=== PATIENT | female | born 1960 | race Caucasian/White ===

== ENCOUNTER 2016-10-06 10:52 | Day surgery (SDC) | payer MEDICAID ==
[2016-10-03 08:48] VITALS: BMI 36.9
[2016-10-06 11:22] VITALS: RESP 18; TEMP 98.2
[2016-10-06] MEDS ORDERED: LIDOCAINE 1% 20 ML VIAL (10MG/ML) FOR IV START INTRADERMA ONE (11:34)
[2016-10-06] MEDS: LACTATED RINGERS 1,000 ML IV SCH ×2 (11:34→12:00)
[2016-10-06] MEDS ORDERED: LIDOCAINE 1% INJ 10MG/ML (20 ML MDV) ONE (12:04)
[2016-10-06] MEDS ORDERED: PROPOFOL 10 MG/ML 20 ML VIAL IV ONE (12:04)
--- NOTE | 2016-10-06 12:18 | P.PCN ---
Date of Procedure: 10/06/16 Procedure(s) Performed: BRIEF HISTORY: Patient is a 56-year-old pleasant white female scheduled for an elective colonoscopy as a part of evaluation of abdominal pain, abdominal pressure and change in bowel habits for the last 3 months duration. PROCEDURE PERFORMED: Colonoscopy. PREOPERATIVE DIAGNOSIS: Abdominal pain, change in bowel habits. IV sedation per Anesthesia. PROCEDURE: After informed consent was obtained, the patient, was brought into the endoscopy unit. IV sedation was administered by Anesthesia under continuous monitoring. Digital rectal examination was normal. Initially the Olympus CF- 160 flexible video colonoscope was then inserted in the rectum, gradually advanced into the cecum without any difficulty. Careful examination was performed as the scope was gradually being withdrawn. Ileocecal valve and the appendiceal orifice were visualized and appeared normal. Prep was excellent. Mucosa of the cecum, ascending colon, transverse colon, descending colon, sigmoid colon, and rectum appeared normal. Retroflexion was performed in the rectum and no lesions were seen. The patient tolerated the procedure well. IMPRESSION: Normal-appearing colon from rectum to cecum with no evidence of colorectal neoplasia. RECOMMENDATIONS: Findings of this examination were discussed with the patient as well as her family. She was advised to have a repeat screening colonoscopy in 10 years.
[2016-10-06 12:43] VITALS: BP 113/73; PULSE 54
== END 2016-10-06 13:01 | disposition home or self-care (01) ==
LOC: ORWHC2ENDO 10:52
PROVIDERS: ATTEND Internal Medicine Gastroenterology
DX: I10 Essential (primary) hypertension (principal); J45.909 Unspecified asthma, uncomplicated; K21.9 Gastro-esophageal reflux disease without esophagitis; Z79.51 Long term (current) use of inhaled steroids; Z88.0 Allergy status to penicillin
CPT/HCPCS: 81025; 45378; J2001; J2704

== ENCOUNTER → 2016-10-17 | Outpatient (CLI) | payer MEDICAID ==
[2016-10-17 07:52] LABS: Basophils % (A) 1 %; CH 32.7; CHCM 33.4; Eosinophils # (A) 0.3 k/uL (0-0.7); Eosinophils % (A) 4 %; HCT 46.3 % (34.0-46.0); HDW 2.27; HGB 15.2 gm/dL (11.4-16.0); Luc # (Auto) 0.11; Luc % (Auto) 2; Lymphocytes # (A) 1.8 k/uL (1.0-4.8); Lymphocytes % (A) 26 %; MCH 32.3 pg (25.0-35.0); MCHC 32.8 g/dL (31.0-37.0); MCV 98.5 fL (80.0-100.0); Mean Platelet Volume 7.2; Monocytes # (A) 0.5 k/uL (0-1.0); Monocytes % (A) 8 %; Neutrophils # (A) 4.1 k/uL (1.3-7.7); Neutrophils % (A) 61 %; RDW 13.1 % (11.5-15.5); WBC 6.8 k/uL (3.8-10.6); WBC (Perox) 7.04
[2016-10-17 08:01] LABS: ALT 26 U/L (9-52); AST 25 U/L (14-36); Alkaline Phosphatase 40 U/L (38-126); Anion Gap 10 mmol/L; Blood Urea Nitrogen 13 mg/dL (7-17); Calcium 9.6 mg/dL (8.4-10.2); Carbon Dioxide 22 mmol/L (22-30); Chloride 107 mmol/L (98-107); Glucose 109 mg/dL (74-99); Non-African American GFR(MDRD) >60 (>60 ml/min/1.73 sqM); Potassium 4.3 mmol/L (3.5-5.1); Sodium 139 mmol/L (137-145); Total Bilirubin 0.9 mg/dL (0.2-1.3); Total Protein 7.8 g/dL (6.3-8.2)
== END | disposition home or self-care (01) ==
LOC: LABWHC1 07:00
PROVIDERS: ATTEND Physician Assistant
DX: Z01.411 Encounter for gynecological examination (general) (routine) with abnormal findings (principal); R19.4 Change in bowel habit; Z13.29 Encounter for screening for other suspected endocrine disorder
CPT/HCPCS: 36415; 80053; 84439; 84443; 85025

== ENCOUNTER → 2016-10-19 | Outpatient (CLI) | payer MEDICAID ==
--- NOTE | 2016-10-20 14:26 | MM ---
Reason for exam: screening (asymptomatic). Last mammogram was performed 1 year and 3 months ago. History: Patient had first child at age 36. Physical Findings: A clinical breast exam by your physician is recommended on an annual basis and results should be correlated with mammographic findings. MG 3D Screening Mammo W/Cad Bilateral CC and MLO view(s) were taken. Prior study comparison: July 29, 2015, right breast US breast workup limited RT. July 29, 2015, right breast MG 3d work up w/cad RT. July 23, 2015, bilateral MG screening mammo w CAD. March 04, 2014, bilateral MG screening mammo w CAD. February 05, 2013, bilateral digital screening mammo w/CAD. There are scattered fibroglandular densities. Finding: There are coarse calcifications in the middle position of the left breast. No significant changes in finding since July 29, 2015, February 05, 2013, July 29, 2015, July 23, 2015, and March 04, 2014. ASSESSMENT: Benign, BI-RAD 2 RECOMMENDATION: Routine screening mammogram of both breasts in 1 year.
== END | disposition home or self-care (01) ==
LOC: RADMAMWWP 07:02
PROVIDERS: ATTEND Family Medicine
DX: Z12.31 Encounter for screening mammogram for malignant neoplasm of breast (principal)
CPT/HCPCS: 77063; G0202

== ENCOUNTER → 2017-03-10 | Outpatient (CLI) | payer MEDICAID ==
--- NOTE | 2017-03-10 14:31 | MM ---
Reason for exam: clinical finding. Last mammogram was performed 5 months ago. History: Patient had first child at age 36. Physical Findings: Nurse Summary: 1 x 1.5cm nodule in the right breast at 2 o'clock (nurse ts). MG 3D Diag Mammo W/Cad RT CC and MLO view(s) were taken of the right breast. Prior study comparison: October 19, 2016, bilateral MG 3d screening mammo w/cad. July 29, 2015, right breast MG 3d work up w/cad RT. Finding: There is an intermediate concern, suspicious high density, indistinct irregular mass located 5 cm from the nipple in the 3 o'clock inner quadrant, middle position of the right breast consistent with ultrasound findings. New finding since October 19, 2016 and July 29, 2015. These results were verbally communicated with the patient and result sheet given to the patient on 03/10/17. ASSESSMENT: Suspicious, BI-RAD 4 RECOMMENDATION: Surgical consultation and ultrasound core biopsy of the right breast. Called Dr. Long with mammographic findings and has scheduled an appointment for the patient for 03/27/17 at 1:[address] Mak. Biopsy scheduled for 03/16/17. PRELIMINARY REPORT CALLED AND FAXED TO DR. MAK ON 03/10/17.
--- NOTE | 2017-03-10 14:33 | USB ---
Reason for exam: additional evaluation requested from abnormal screening. History: Patient had first child at age 36. US Breast Limited RT Right breast ultrasound demonstrates a 18 x 67mm irregular, cystic lesion at 2 o'clock. These results were verbally communicated with the patient and result sheet given to the patient on 03/10/17. ASSESSMENT: Highly suggestive of malignancy, BI-RAD 5 RECOMMENDATION: Surgical consultation and ultrasound core biopsy of the right breast. Called Dr. Long with mammographic findings and has scheduled an appointment for the patient for 03/27/17 at 1:[address] Mak. Biopsy scheduled for 03/16/17. PRELIMINARY REPORT CALLED AND FAXED TO DR. MAK ON 03/10/17.
== END ==
LOC: RADMAMWWP 09:44
PROVIDERS: ATTEND Family Medicine
DX: N63 Unspecified lump in breast (principal)
CPT/HCPCS: 76642; G0206; G0279

== ENCOUNTER → 2017-03-16 | Day surgery (SDC) | payer MEDICAID ==
[2017-03-16 11:33] VITALS: RESP 16; BMI 36.0
[2017-03-16 13:29] VITALS: BP 142/85; PULSE 80; TEMP 97.8
--- NOTE | 2017-03-16 14:12 | USB ---
EXAMINATION TYPE: US biopsy breast VAD RT, Postbiopsy diagnostic mammo RT wo CAD DATE OF EXAM: 03/16/2017 CLINICAL HISTORY: 56-year-old female R92.8 ABN MAMMO. Patient with new palpable and mammographic finding in the right breast. Patient reports some bruising that occurred 3 weeks ago. TECHNIQUE: Ultrasound guided core biopsy of the 1:00 right breast. COMPARISON: 03/10/2017 and 10/19/2016 FINDINGS: The procedure of ultrasound guided core biopsy was explained to the patient. Benefits, alternatives, and risks were discussed. An informed consent was then obtained. The patient was placed in supine positioning for imaging and for the procedure. The overlying skin was prepped and draped in usual sterile fashion. Lidocaine was used as anesthetic into the skin and subcutaneous tissue up to area of concern in the right breast. Under ultrasound guidance, a 13-gauge vacuum-assisted mammotome Elite biopsy gun device was used to obtain 7 core samples. Following this, a ribbon clip was left in lesion. Of note, most of the lesion went away with the first specimen suggesting a prominent fluid component. The patient tolerated the procedure well without any immediate complication. The patient was kept in the radiology department for short stay after the procedure and then discharged home in stable condition. Postbiopsy mammogram shows ribbon clip in appropriate position at the 2:00 site corresponding to the location of mammographic abnormality seen on 03/10/2017. IMPRESSION: Successful, uncomplicated ultrasound guided core biopsy of area of concern in the right breast, full pathology results to follow. We note that this was a new palpable mammographic finding which developed over the course of only 4 months and the patient also had bruising in this area. A posttraumatic etiology/ hematoma is suspected rather than neoplasm. Pathology Results: Benign BREAST, RIGHT, CORE BIOPSY: FAT NECROSIS WITH FIBROSIS, CHRONIC INFLAMMATION AND PIGMENT DEPOSITION CONSISTENT WITH HEMOSIDERIN. NEGATIVE FOR MALIGNANCY Recommendation Follow up mammogram of the right breast in 2 months. JOEYD
== END ==
LOC: RADUSWWP 11:16
PROVIDERS: ATTEND Surgery
DX: N64.1 Fat necrosis of breast (principal); Z88.0 Allergy status to penicillin
CPT/HCPCS: 88305; 19083; G0206; A4648; J2001

== ENCOUNTER → 2017-11-20 | Outpatient (CLI) | payer MEDICAID ==
--- NOTE | 2017-11-20 08:32 | MM ---
Reason for exam: follow-up at short interval from prior study. Last mammogram was performed 8 months ago. History: Patient had first child at age 36. Benign US biopsy breast VAD RT of the right breast, March 16, 2017. Took hormonal contraceptives beginning at age 21. Physical Findings: Nurse did not find any significant physical abnormalities on exam. MG Diagnostic Mammo w CAD EDUARDO Bilateral CC and MLO view(s) were taken. Prior study comparison: March 16, 2017, right breast MG diagnostic mammo RT wo CAD. March 10, 2017, right breast MG 3d diag mammo w/cad RT. Finding: There are typically benign calcifications similar to 2014. No suspicious abnormality. Right biopsy marker noted. Previous focal asymmetry resolved post biopsy. These results were verbally communicated with the patient and result sheet given to the patient on 11/20/17. ASSESSMENT: Benign, BI-RAD 2 RECOMMENDATION: Routine screening mammogram of both breasts in 1 year.
== END | disposition home or self-care (01) ==
LOC: RADMAMWWP 07:41
PROVIDERS: ATTEND Family Medicine
DX: R92.8 Other abnormal and inconclusive findings on diagnostic imaging of breast (principal)
CPT/HCPCS: 77066

== ENCOUNTER → 2018-09-05 | Outpatient (CLI) | payer MEDICAID ==
[2018-09-05 08:18] LABS: Basophils % (A) 1 %; Eosinophils # (A) 0.3 k/uL (0-0.7); Eosinophils % (A) 6 %; HCT 44.9 % (34.0-46.0); HGB 14.3 gm/dL (11.4-16.0); Lymphocytes # (A) 1.9 k/uL (1.0-4.8); Lymphocytes % (A) 40 %; MCH 30.8 pg (25.0-35.0); MCHC 31.8 g/dL (31.0-37.0); Mean Platelet Volume 6.9; Monocytes # (A) 0.4 k/uL (0-1.0); Monocytes % (A) 9 %; Neutrophils # (A) 2.1 k/uL (1.3-7.7); Neutrophils % (A) 42 %; Platelet Count 246 k/uL (150-450); RBC 4.63 m/uL (3.80-5.40); RDW 12.8 % (11.5-15.5); WBC 4.9 k/uL (3.8-10.6)
[2018-09-05 16:17] LABS: Iron Saturation 24.2 (12.00-45.00)
[2018-09-05 16:41] LABS: Albumin 4.6 g/dL (3.80-4.90); Albumin/Globulin Ratio 2.09 (1.60-3.17); Anion Gap 7.3 mmol/L (4.00-12.00); Calcium 9.7 mg/dL (8.7-10.3); Carbon Dioxide 25.7 mmol/L (21.6-31.8); Globulin 2.2 g/dL (1.6-3.3); LDL Cholesterol,Calculated 120.2 mg/dL (0.0-131.0); Potassium 4.5 mmol/L (3.5-5.5); Total Bilirubin 0.5 mg/dL (0.3-1.2); Total Protein 6.8 g/dL (6.2-8.2); VLDL Calculation 20.8 mg/dL (5.00-40.00)
== END | disposition home or self-care (01) ==
LOC: LABWHC1 07:30
PROVIDERS: ATTEND Nurse Practitioner Family
DX: E55.9 Vitamin D deficiency, unspecified (principal); R25.2 Cramp and spasm; K21.9 Gastro-esophageal reflux disease without esophagitis; I10 Essential (primary) hypertension; R79.89 Other specified abnormal findings of blood chemistry
CPT/HCPCS: 36415; 80053; 80061; 82306; 83540; 83550; 83735; 85025

== ENCOUNTER 2018-11-03 10:35 | Emergency (ER) | payer MEDICAID ==
[2018-11-03 10:49] VITALS: RESP 18; TEMP 98.1
[2018-11-03] MEDS ORDERED: MORPHINE SULFATE 4 MG/ML SYRINGE IVP PRN (11:15)
[2018-11-03] MEDS ORDERED: SODIUM CHLORIDE 0.9% 500 ML IV STA (11:21)
--- NOTE | 2018-11-03 11:24 | ED ---
General Adult HPI - General Chief complaint: Abdominal Pain Stated complaint: Abd pain Time Seen by Provider: 11/03/18 11:04 Source: patient Mode of arrival: ambulatory Limitations: no limitations - History of Present Illness Initial comments: Dictation was produced using [employer] dictation software. please excuse any grammatical, word or spelling errors. Chief Complaint: 58-year-old female presents with abdominal pain. History of Present Illness: Patient's 58-year-old female with past history of asthma hypertension. Patient was sent here from [facility]. Monday of this week patient had a endometrial biopsy performed by forensic investigator Dr. Hutson. She was told that she was to expect some cramping after the procedure. Patient states that initially she felt fine however over the next couple of days she began expressing worsening symptoms. Patient states that her pain is located to the suprapubic area incidental cramping in nature. She states constant. Denies any nausea vomiting or diarrhea. Patient having normal bowel movements. She was seen at [facility] were is evaluated and then referred to emergency department for further medical evaluation and possible treatment. Denies any vaginal discharge or vaginal bleeding. The ROS documented in this emergency department record has been reviewed and confirmed by me. Those systems with pertinent positive or negative responses have been documented in the HPI. All other systems are other negative and/or noncontributory. PHYSICAL EXAM: General Impression: Alert and oriented x3, not in acute distress HEENT: Normocephalic atraumatic, extra-ocular movements intact, pupils equal and reactive to light bilaterally, mucous membranes moist. Cardiovascular: Heart regular rate and rhythm, S1&S2 audible, no murmurs, rubs or gallops Chest: Lungs clear to auscultation bilaterally, no rhonchi, no wheeze, no rales Abdomen: Bowel sounds present, abdomen soft, mild tenderness to palpation to the suprapubic area. Musculoskeletal: Pulses present and equal in all extremities, no peripheral edema Motor: no focal deficits noted Neurological: CN II-XII grossly intact, no focal motor or sensory deficits noted Skin: Intact with no visualized rashes Psych: Normal affect and mood ED course: 58-year-old female presents with suprapubic pain after endometrial biopsy. Vital signs upon arrival are within acceptable limits. Laboratory evaluation obtained. CBC, abdominal labs, urinalysis is obtained. Patient does have mild leukocytosis and a urine. Patient not having urinary symptoms. Urine culture sent. Pending results. Patient given morphine intravenous fluids with improvement of symptoms. No signs of follow-up viscus perforation. Patient feels much better. Patient clear for discharge. She is given prescription of opiates for severe pain not relieved with Motrin and Tylenol muscle relaxants she is told to follow up with [facility] on Monday. Return parameters discussed. Patient clear for discharge. - Related Data Home Medications Medication Instructions Recorded Confirmed Albuterol Sulfate [Proair Hfa] 1 puff INHALATION Q6HR PRN 10/03/16 03/16/17 Cetirizine HCl [Zyrtec] 10 mg PO DAILY 10/03/16 03/16/17 Cholecalciferol [Vitamin D3] 2,000 unit PO DAILY 10/03/16 03/16/17 Fluticasone/Salmeterol [Advair 1 inhalation PO QAM 10/03/16 03/16/17 250-50 Diskus] Losartan Potassium [Cozaar] 25 mg PO DAILY 10/03/16 03/16/17 Previous Rx's Medication Instructions Recorded HYDROcodone/APAP 5-325MG [[place] 1 tab PO Q6HR PRN 3 Days #12 tab 11/03/18 5-325] Allergies Allergy/AdvReac Type Severity Reaction Status Date / Time Penicillins Allergy Rash/Hives Verified 11/03/18 10:49 Review of Systems ROS Statement: Those systems with pertinent positive or pertinent negative responses have been documented in the HPI. ROS Other: All systems not noted in ROS Statement are negative. Past Medical History Past Medical History: Asthma, Hypertension Additional Past Medical History / Comment(s): hx migraines, stomach burning, change in bowel habits, hx elevated liver enzymes, History of Any Multi-Drug Resistant Organisms: None Reported Additional Past Surgical History / Comment(s): colonoscopy Past Anesthesia/Blood Transfusion Reactions: No Reported Reaction Past Psychological History: No Psychological Hx Reported Smoking Status: Never smoker Past Alcohol Use History: Occasional Past Drug Use History: None Reported - Past Family History Mother Family Medical History: Cancer Father Family Medical History: Cancer General Exam Limitations: no limitations Course Vital Signs 11/03/18 11/03/18 10:45 12:12 Temperature 98.1 F Pulse Rate 82 82 Respiratory 18 18 Rate Blood Pressure 129/90 149/82 O2 Sat by Pulse 98 98 Oximetry Medical Decision Making - Lab Data Result diagrams: 11/03/18 11:25 11/03/18 11:25 Lab Results 11/03/18 11/03/18 11/03/18 Range/Units 11:25 11:25 12:06 WBC 10.8 H (3.8-10.6) k/uL RBC 4.69 (3.80-5.40) m/uL Hgb 14.8 (11.4-16.0) gm/dL Hct 45.0 (34.0-46.0) % MCV 95.9 (80.0-100.0) fL MCH 31.6 (25.0-35.0) pg MCHC 32.9 (31.0-37.0) g/dL RDW 13.0 (11.5-15.5) % Plt Count 205 (150-450) k/uL Neutrophils % 86 % Lymphocytes % 7 % Monocytes % 4 % Eosinophils % 2 % Basophils % 0 % Neutrophils # 9.3 H (1.3-7.7) k/uL Lymphocytes # 0.7 L (1.0-4.8) k/uL Monocytes # 0.4 (0-1.0) k/uL Eosinophils # 0.2 (0-0.7) k/uL Basophils # 0.0 (0-0.2) k/uL Sodium 138 (137-145) mmol/L Potassium 4.1 (3.5-5.1) mmol/L Chloride 105 (98-107) mmol/L Carbon Dioxide 25 (22-30) mmol/L Anion Gap 8 mmol/L BUN 11 (7-17) mg/dL Creatinine 0.72 (0.52-1.04) mg/dL Est GFR (CKD-EPI)AfAm >90 (>60 ml/min/1.73 sqM) Est GFR (CKD-EPI)NonAf >90 (>60 ml/min/1.73 sqM) Glucose 110 H (74-99) mg/dL Calcium 9.7 (8.4-10.2) mg/dL Total Bilirubin 1.1 (0.2-1.3) mg/dL AST 28 (14-36) U/L ALT 33 (9-52) U/L Alkaline Phosphatase 41 (38-126) U/L Total Protein 7.6 (6.3-8.2) g/dL Albumin 4.5 (3.5-5.0) g/dL Urine Color Yellow Urine Appearance Cloudy H (Clear) Urine pH 5.5 (5.0-8.0) Ur Specific [place] 1.026 (1.001-1.035) Urine Protein 1+ H (Negative) Urine Glucose (UA) Negative (Negative) Urine Ketones 1+ H (Negative) Urine Blood Moderate H (Negative) Urine Nitrite Negative (Negative) Urine Bilirubin Negative (Negative) Urine Urobilinogen <2.0 (<2.0) mg/dL Ur Leukocyte Esterase Negative (Negative) Urine RBC 15 H (0-5) /hpf Urine WBC 10 H (0-5) /hpf Urine WBC Clumps Occasional H (None) /hpf Ur Squamous Epith Cells 23 H (0-4) /hpf Amorphous Sediment Rare H (None) /hpf Urine Bacteria Few H (None) /hpf Hyaline Casts 8 H (0-2) /lpf Urine Mucus Many H (None) /hpf Disposition Clinical Impression: Pelvic pain Disposition: HOME SELF-CARE Condition: Good Instructions (If sedation given, give patient instructions): Pelvic Pain (ED) Prescriptions: HYDROcodone/APAP 5-325MG [[place] 5-325] 1 tab PO Q6HR PRN 3 Days #12 tab PRN Reason: Severe Pain Is patient prescribed a controlled substance at d/c from ED?: Yes If prescribed controlled substance>3 days was MAPS reviewed?: Prescribed <3 Days Referrals: Mirtha Blandon DO [Doctor of Osteopathic Medicine] - 1-2 days Time of Disposition: 12:58
[2018-11-03] MEDS ORDERED: ONDANSETRON 4 MG/2 ML VIAL IVP STA (11:31)
[2018-11-03 11:40] LABS: Basophils % (A) 0 %; Eosinophils # (A) 0.2 k/uL (0-0.7); Eosinophils % (A) 2 %; HGB 14.8 gm/dL (11.4-16.0); Lymphocytes # (A) 0.7 k/uL (1.0-4.8); Lymphocytes % (A) 7 %; MCH 31.6 pg (25.0-35.0); MCHC 32.9 g/dL (31.0-37.0); MCV 95.9 fL (80.0-100.0); Mean Platelet Volume 7.1; Monocytes # (A) 0.4 k/uL (0-1.0); Monocytes % (A) 4 %; Neutrophils # (A) 9.3 k/uL (1.3-7.7); Neutrophils % (A) 86 %; Platelet Count 205 k/uL (150-450); RBC 4.69 m/uL (3.80-5.40); WBC 10.8 k/uL (3.8-10.6)
[2018-11-03 11:50] LABS: ALT 33 U/L (9-52); AST 28 U/L (14-36); Albumin 4.5 g/dL (3.5-5.0); Alkaline Phosphatase 41 U/L (38-126); Anion Gap 8 mmol/L; Blood Urea Nitrogen 11 mg/dL (7-17); Calcium 9.7 mg/dL (8.4-10.2); Carbon Dioxide 25 mmol/L (22-30); Chloride 105 mmol/L (98-107); Glucose 110 mg/dL (74-99); Potassium 4.1 mmol/L (3.5-5.1); Sodium 138 mmol/L (137-145); Total Bilirubin 1.1 mg/dL (0.2-1.3); Total Protein 7.6 g/dL (6.3-8.2)
--- NOTE | 2018-11-03 11:54 | XR ---
EXAMINATION TYPE: XR abdomen 1V , 2 VIEWS DATE OF EXAM ORDERED: 11/03/2018 HISTORY: Pain. COMPARISON: None. FINDINGS: Lung bases are clear. Within the abdomen, the abdominal gas pattern is normal. There is no evidence of obstruction or free air. No unusual calcifications are seen. IMPRESSION: NO ACUTE INTRA-ABDOMINAL ABNORMALITY.
[2018-11-03 12:27] LABS: Amorphous Sediment,Urine Rare /hpf; Appearance,Urine Cloudy (Clear); Bacteria,Urine Few /hpf; Bilirubin,Urine Negative (Negative); Blood,Urine Moderate (Negative); Color,Urine Yellow; Glucose,Urine (UA) Negative (Negative); Hyaline Casts,Urine 8 /lpf (0-2); Ketones,Urine 1+ (Negative); Leukocyte Esterase,Urine Negative (Negative); Mucus,Urine Many /hpf; Nitrite,Urine Negative (Negative); PH, Urine 5.5 (5.0-8.0); Protein,Urine 1+ (Negative); RBC,Urine 15 /hpf (0-5); Specific Gravity,Urine 1.026 (1.001-1.035); Squamous Epithelial Cell,Urine 23 /hpf (0-4); Urobilinogen,Urine <2.0 mg/dL (<2.0); WBC,Urine 10 /hpf (0-5)
[2018-11-03 13:18] VITALS: BP 150/79; PULSE 85
== END 2018-11-03 13:22 | disposition home or self-care (01) ==
LOC: EC 10:35
DX: R10.2 Pelvic and perineal pain (principal); R10.30 Lower abdominal pain, unspecified; D72.829 Elevated white blood cell count, unspecified; J45.909 Unspecified asthma, uncomplicated; I10 Essential (primary) hypertension; Z79.51 Long term (current) use of inhaled steroids; Z79.899 Other long term (current) drug therapy; Z88.0 Allergy status to penicillin
CPT/HCPCS: 36415; 80053; 85025; 81001; 87086; 74018; 99284; 96374; 96375; J2270; J2405

== ENCOUNTER → 2018-11-15 | Outpatient (CLI) | payer MEDICAID | LOC: LABWHC1 12:36 | PROVIDERS: ATTEND Obstetrics & Gynecology Obstetrics | DX: N94.9 Unspecified condition associated with female genital organs and menstrual cycle (principal) | CPT/HCPCS: 36415; 81503 ==

== ENCOUNTER → 2018-11-29 | Outpatient (CLI) | payer MEDICAID ==
[2018-11-29 17:32] LABS: Basophils % (A) 0 %; Eosinophils # (A) 0.2 k/uL (0-0.7); Eosinophils % (A) 3 %; HCT 39.3 % (34.0-46.0); HGB 13.2 gm/dL (11.4-16.0); Lymphocytes # (A) 2.2 k/uL (1.0-4.8); Lymphocytes % (A) 33 %; MCH 31.7 pg (25.0-35.0); MCHC 33.5 g/dL (31.0-37.0); MCV 94.6 fL (80.0-100.0); Mean Platelet Volume 7.4; Monocytes # (A) 0.5 k/uL (0-1.0); Monocytes % (A) 7 %; Neutrophils # (A) 3.6 k/uL (1.3-7.7); Neutrophils % (A) 55 %; Platelet Count 298 k/uL (150-450); RBC 4.15 m/uL (3.80-5.40); WBC 6.6 k/uL (3.8-10.6)
[2018-11-29 17:53] LABS: African American GFR (CKD) >90 (>60 ml/min/1.73 sqM); Anion Gap 10 mmol/L; Blood Urea Nitrogen 14 mg/dL (7-17); Carbon Dioxide 24 mmol/L (22-30); Chloride 105 mmol/L (98-107); Glucose 104 mg/dL (74-99); Potassium 4.1 mmol/L (3.5-5.1); Sodium 139 mmol/L (137-145)
== END | disposition home or self-care (01) ==
LOC: LABPAT 16:51
PROVIDERS: ATTEND Obstetrics & Gynecology Obstetrics
DX: Z01.810 Encounter for preprocedural cardiovascular examination (principal); I10 Essential (primary) hypertension; Z01.812 Encounter for preprocedural laboratory examination
CPT/HCPCS: 80051; 82565; 82947; 84520; 85025; 87086; 93005

== ENCOUNTER 2018-12-07 06:03 | Day surgery (SDC) | payer MEDICAID ==
[~2018-12-07 06:03] MED LIST: ceFAZolin IN SWFI 2 GM/20 ML SYRINGE IVP ONE
[2018-12-07] MEDS ORDERED: SCOPOLAMINE 1.5MG/72HR PATCH TRANSDERM ONE (06:04)
[2018-12-07] MEDS ORDERED: HYDROmorphone 0.5 MG/0.5 ML SYRINGE IVP PRN (06:04)
[2018-12-07] MEDS ORDERED: MIDAZOLAM 2 MG/2 ML VIAL IV PRN (06:04)
[2018-12-07] MEDS ORDERED: DEXAMETHASONE SOD PHOSPHATE 10 MG/ML 1 ML VIAL IV ONE (06:04)
[2018-12-07] MEDS ORDERED: ONDANSETRON 4 MG/2 ML VIAL IVP ONE (06:04)
[2018-12-07] MEDS ORDERED: LIDOCAINE 1% 20 ML VIAL (10MG/ML) FOR IV START INTRADERMA ONE (06:25)
[2018-12-07] MEDS: LACTATED RINGERS 1,000 ML IV SCH (06:25)
[2018-12-07] MEDS ORDERED: fentaNYL (PF) 50 MCG/ML 2 ML AMP ONE (07:38)
[2018-12-07] MEDS ORDERED: MIDAZOLAM 2 MG/2 ML VIAL ONE (07:38)
[2018-12-07] MEDS ORDERED: GLYCOPYRROLATE 0.2 MG/ML 2 ML VIAL ONE (07:38)
[2018-12-07] MEDS ORDERED: PROPOFOL 10 MG/ML 20 ML VIAL IV ONE (07:38)
[2018-12-07] MEDS ORDERED: NEOSTIGMINE 1 MG/ML 10 ML VIAL ONE (07:38)
[2018-12-07] MEDS ORDERED: LIDOCAINE 1% INJ 10MG/ML (20 ML MDV) ONE (07:38)
[2018-12-07] MEDS ORDERED: SUCCINYLCHOLINE CHLORIDE 100 MG/5 ML SYR IV ONE (07:38)
[2018-12-07] MEDS ORDERED: ROCURONIUM BROMIDE 10 MG/ML 10 ML VIAL IV ONE (07:38)
[2018-12-07] MEDS ORDERED: BUPIVACAINE (PF) 0.25% 30 ML VIAL SQ ONE ×2 (08:56→09:59)
[2018-12-07] MEDS ORDERED: LACTATED RINGERS 1,000 ML IV ONE (09:30)
[2018-12-07] MEDS ORDERED: ACETAMINOPHEN IV (For NPO) 1,000 MG in EMPTY BAG 1 BAG IVPB ONE (10:08)
[2018-12-07] MEDS ORDERED: Acetaminophen-Codeine 300-30mg TAB PO PRN (10:08)
[2018-12-07] MEDS ORDERED: ALBUTEROL NEBULIZED 2.5 MG/3 ML INHALATION PRN (10:10)
--- NOTE | 2018-12-07 10:23 | P.OP ---
Date of Procedure: 12/07/18 Preoperative Diagnosis: Left ovarian mass, pelvic pain, menorrhagia Postoperative Diagnosis: Same plus obliterated cul-de-sac Procedure(s) Performed: Robotic-assisted vaginal hysterectomy, bilateral salpingo-oophorectomy, extensive adhesiolysis, diagnostic cystoscopy, intraoperative consultation with Dr. Montez Villalpando regarding bowel adhesions Anesthesia: PARI Surgeon: Mirtha Blandon Undercoater #1: Paul Barrios Estimated Blood Loss (ml): 50 IV fluids (ml): 1,000 Urine output (ml): 750 Pathology: other (Uterus cervix, bilateral fallopian tubes and ovaries) Condition: stable Disposition: PACU Indications for Procedure: 5 cm pelvic mass noted on ultrasound, pelvic pain Operative Findings: Upon entering the abdomen the uterus is noted to be mobile posterior cul-de-sac is noted to be obliterated with filmy bowel adhesions both ovaries appear normal the right fallopian tube was distended with fluid consistent with hydrosalpinx, both ovaries were grossly normal in appearance Description of Procedure: Patient was seen in the preoperative area and informed consent was obtained once again. Patient was counseled as the risks of surgery in the office including but not limited to infection, bleeding, damage to bladder, bowel, ureter, other pelvic structures. Patient stated understanding and wished for surgery. Patient was given the opportunity to have a second opinion with a PMP CERTIFIED PROJECT MANAGER oncologist which she declined. Patient was taken back to the operating suite where general anesthesia was obtained without difficulty by the anesthesia department. She was then prepped and draped in normal sterile fashion in the dorsal lithotomy position. A weighted speculum posterior vaginal vault the anterior lip of the cervix is visualized and grasped with a single-tooth tenaculum. Endocervical canal was then dilated and a [employer] care uterine manipulator was advanced into the uterus and of balloon was insufflated with air. The cervical cap was then placed snugly against the cervix and all consents were removed from the patient's vaginal vault. A Mueller catheter had been placed under sterile technique prior to this. Attention was then turned the patient's abdomen where approximately 2 finger breaths above the umbilicus a small skin incision is made. Through the incision the Veress needle is placed, once the patient was deemed to be in the proper position with a drop of CO2 pressure with insufflation of CO2 gas CO2 insufflation was allowed to occur. 3 L of gas were used to obtain pneumoperitoneum. At this time the incision was elongated to 12 mm, and a 12 mm trocar and sleeve with a laprascope in placed was placed through the skin incision and toward the pneumoperitoneum under direct visualization. On inspection the patient's pelvis the above-noted findings were visualized. The additional port sites were then placed at 10 cm lateral to the midline port and 370 m inferior to this. These are 8 mm ports and placed under direct visualization. In the left upper quadrant 12 mm trocar and sleeve is placed under direct visualization. At this time the patient was placed in steep Trendelenburg and the da Goldie robot was docked in the usual fashion. In the right operative arm the monopolar scissors is placed in the left operative arm the bipolar forceps is placed. On inspection the patient's pelvis the posterior cul-de-sac was noted to be completely obliterated with inflammatory/bowel adhesions. The left fallopian tube was freed of adhesions adhesions using sharp/blunt dissection. The left IP ligament was visualized coagulated distally and proximally and divided. This continued through the broad and toward the round which was coagulated distally and proximally divided divided. The bladder flap from the left was then created using sharp and blunt dissection. Attention was then turned to the right adnexa where multiple filmy adhesions of bowel were sharply and bluntly dissected off of the fallopian tube and pelvic sidewall. A Ray-Kris was placed and blunt dissection was used to gently dissect the bowel away from the operating field. Once the IP ligament from the right was visualized it was coagulated distally and proximally and divided. Hemostasis was appreciated. Continue visualization of the bowel was noted to be far away from the operating field at this point. The round ligament was then coagulated distally and proximally divided. The bladder flap from the right was then created using sharp and blunt dissection. The bladder was noted to be far away from the operating field. The ascending branch of the uterine artery on the right was then coagulated distally and proximally and divided. Hemostasis was appreciated. Attention was then turned to the patient's left descending branch of the uterine artery was coagulated distally and proximally divided. At this time the posterior cul-de-sac was free of adhesions and the only remaining attachment was a vaginal attachment therefore INCISION WAS MADE AND CIRCUMLENTAL FASHION THE UTERUS FALLOPIAN TUBES AND OVARIES WERE THEN DELIVERED THROUGH THE VAGINAL OPENING. THE PELVIS WAS THEN COPIOUSLY IRRIGATED AND HEMOSTASIS WAS APPRECIATED. THE VAGINAL CUFF WAS THEN CLOSED WITH [id number] SUTURES OF 0 VICRYL. APPROXIMATELY 4 SUTURES WERE USED TO OBTAIN CLOSURE. AT THIS POINT DR. VILLALPANDO ENTERED THE OPERATING SUITE TO INSPECT THE PATIENT'S BOWEL NEAR THE OPERATING SITE. He felt at this time the bowel was intact and no injuries were noted. FloSeal was placed over the vaginal cuff. At this time the da Goldie robot was undocked in the usual fashion in the instruments had been removed prior to this. Attention then turned the patient's Mueller catheter which was removed without difficulty cystoscopy was then performed. The cystoscope was placed through the urethra and toward the bladder bladder bubble was noted both ureteral orifices noted to be spilling clear yellow urine a complete survey was negative. Cystoscope was removed and the Mueller catheter was replaced. Attention was then to the patient's abdomen where the skin incisions were closed in the usual fashion with 4-0 Vicryl in a subcuticular fashion Steri-Strips Steri-Strips and sterile dressings were applied as needed All counts were correct 2 patient tolerated procedure well and was taken the recovery room awake in stable condition.
[2018-12-07] MEDS ORDERED: IBUPROFEN IV 800 MG in SODIUM CHLORIDE 0.9% 250 ML IV ONE (10:30)
[2018-12-07] MEDS: metroNIDAZOLE-NS PMX 500 MG in SALINE 1 100ML.BAG IVPB STA ×2 (11:18→11:44)
[2018-12-07] MEDS: Acetaminophen-Codeine 300-30mg TAB PO PRN (11:45)
[2018-12-07 18:03] VITALS: BMI 36.6
[2018-12-07] MEDS: IBUPROFEN 600 MG TAB PO PRN (19:39)
[2018-12-07] MEDS ORDERED: BENZOCAINE/MENTHOL LOZENG 1 EACH LOZENGE MUCOUS MEM PRN (19:52)
[2018-12-07] MEDS: SYMBICORT 80-4.5 MCG INHALER INHALATION SCH (20:52)
[2018-12-08 00:36] VITALS: RESP 18
[2018-12-08] MEDS: IBUPROFEN 600 MG TAB PO PRN (03:42)
[2018-12-08 08:39] LABS: Basophils % (A) 0 %; Eosinophils # (A) 0.1 k/uL (0-0.7); Eosinophils % (A) 1 %; HCT 36.8 % (34.0-46.0); HGB 11.9 gm/dL (11.4-16.0); Lymphocytes # (A) 2.2 k/uL (1.0-4.8); Lymphocytes % (A) 22 %; MCH 31.1 pg (25.0-35.0); MCHC 32.4 g/dL (31.0-37.0); MCV 96.1 fL (80.0-100.0); Mean Platelet Volume 7.3; Monocytes # (A) 0.6 k/uL (0-1.0); Monocytes % (A) 6 %; Neutrophils # (A) 7.1 k/uL (1.3-7.7); Neutrophils % (A) 70 %; Platelet Count 240 k/uL (150-450); RBC 3.83 m/uL (3.80-5.40); WBC 10.1 k/uL (3.8-10.6)
[2018-12-08] MEDS: SYMBICORT 80-4.5 MCG INHALER INHALATION SCH (08:40)
[2018-12-08] MEDS: Acetaminophen-Codeine 300-30mg TAB PO PRN (09:59)
[2018-12-08 11:13] VITALS: BP 99/60; PULSE 65; TEMP 98
--- NOTE | 2018-12-08 12:27 | P.DS ---
Providers Expected date of discharge: 12/08/18 Attending physician: Mirtha Blandon Primary care physician: Yvon Long - Discharge Diagnosis(es) (1) Chronic pelvic pain in female Current Visit: Yes Status: Acute (2) Adnexal mass Current Visit: Yes Status: Acute Hospital Course: The patient is a 58-year-old 1 para 1001 who initially presented to the office with history of significant left lower quadrant pain as well as menorrhagia with significant dysmenorrhea. She was evaluated by ultrasound and found to have a roughly 5 x 4 x 5 cm complex mass posterior to the uterus which was thought to be of left ovarian origin. She underwent OVA1 testing which was equivocal. Phone consultation with [employer] oncology suggested that there intervention was not necessary and that this could be managed locally. As a result, she was scheduled for an taken the operating room for da Goldie robotically assisted laparoscopic hysterectomy with bilateral salpingo- oophorectomy and indicated surgery. Intraoperatively, she was found to have essentially normal ovaries bilaterally which were densely adherent to local structures including the tubes. The sigmoid colon and bowel were adhesed posteriorly to the uterus to both adnexa and the backside of the uterus. Most of these adhesions could be lysed with blunt and sharp dissection. After freeing the bilateral adnexa, she underwent the procedure and an uncomplicated further fashion. There was no evidence of a complex pelvic mass and was likely secondary to the adhesive nature of the pelvis leading to pseudocysts. The patient's postoperative course was unremarkable with vital signs are many stable and her temperature was afebrile throughout. She was tolerating regular diet by the morning of postoperative day #1 and deemed stable for discharge on postoperative day #1. She was discharged home to follow-up in the office in 2 weeks for incision checks and 8 weeks routinely. Discharge instructions included calling for any significantly increased fever, incisional complaints, GI complaints, bladder issues, vaginal bleeding, or anything else that concerned her. She was additionally instructed to have nothing in the vagina for at least 8 weeks time to include intercourse. She understood her instructions and agrees to follow up as noted above. Discharge medications included any home medications as well as Motrin 800 mg every 6-8 hours as needed for which she already has a prescription. She was to potentially alternate this with narcotics as necessary and was provided with a prescription for Tylenol 3, 1-2 by mouth every 6 hours when necessary pain, #12 dispensed with no refills. She is apparently in possession of between 4 and 8 [place] 5/325 mg tablets which were prescribed 2 months ago which she will use prior to filling the prescription for Tylenol 3. Discharge hemoglobin and hematocrit were 11.9 and 36.8 respectively. Procedures: #1. Da Goldie robotically assisted laparoscopic hysterectomy with bilateral salpingo-oophorectomy #2. Diagnostic cystoscopy Patient Condition at Discharge: Stable Plan - Discharge Summary Discharge Rx Participant: Yes New Discharge Prescriptions: No Action Cholecalciferol [Vitamin D3] 2,000 unit PO DAILY Fluticasone/Salmeterol [Advair 250-50 Diskus] 1 inhalation PO QAM Losartan Potassium [Cozaar] 25 mg PO DAILY Albuterol Sulfate [Proair Hfa] 1 puff INHALATION Q6HR PRN PRN Reason: Shortness Of Breath Discharge Medication List Albuterol Sulfate [Proair Hfa] 1 puff INHALATION Q6HR PRN 10/03/16 [History] Cholecalciferol [Vitamin D3] 2,000 unit PO DAILY 10/03/16 [History] Fluticasone/Salmeterol [Advair 250-50 Diskus] 1 inhalation PO QAM 10/03/16 [History] Losartan Potassium [Cozaar] 25 mg PO DAILY 10/03/16 [History] Follow up Appointment(s)/Referral(s): Mirtha Blandon DO [Doctor of Osteopathic Medicine] - 2 Weeks Discharge Disposition: HOME SELF-CARE
== END 2018-12-08 13:10 | disposition home or self-care (01) ==
LOC: OR 06:03 → 6PED 10:03 → OR 12-08 13:10
PROVIDERS: ATTEND Obstetrics & Gynecology Obstetrics
DX: N72 Inflammatory disease of cervix uteri (principal); D25.9 Leiomyoma of uterus, unspecified; N73.6 Female pelvic peritoneal adhesions (postinfective); N83.8 Other noninflammatory disorders of ovary, fallopian tube and broad ligament; N70.91 Salpingitis, unspecified; J45.909 Unspecified asthma, uncomplicated; I10 Essential (primary) hypertension; K21.9 Gastro-esophageal reflux disease without esophagitis; E78.5 Hyperlipidemia, unspecified; F32.9 Major depressive disorder, single episode, unspecified; Z82.49 Family history of ischemic heart disease and other diseases of the circulatory system; Z82.3 Family history of stroke; Z83.3 Family history of diabetes mellitus; Z80.42 Family history of malignant neoplasm of prostate; Z80.0 Family history of malignant neoplasm of digestive organs; Z79.899 Other long term (current) drug therapy; Z88.1 Allergy status to other antibiotic agents; Z88.0 Allergy status to penicillin
CPT/HCPCS: 52000; 58552; S2900; 36415; 81025; 85025; 86850; 86900; 86901; 88307; 88309; 94640

== ENCOUNTER → 2019-05-22 | Outpatient (CLI) | payer MEDICAID ==
--- NOTE | 2019-05-24 12:31 | MM ---
Reason for exam: screening (asymptomatic). Last mammogram was performed 1 year and 6 months ago. History: Patient is postmenopausal and had first child at age 36. Benign US biopsy breast VAD RT of the right breast, March 16, 2017. Took hormonal contraceptives beginning at age 21. Physical Findings: A clinical breast exam by your physician is recommended on an annual basis and results should be correlated with mammographic findings. MG 3D Screening Mammo W/Cad Bilateral CC and MLO view(s) were taken. Prior study comparison: November 20, 2017, bilateral MG diagnostic mammo w CAD EDUARDO. March 16, 2017, right breast MG diagnostic mammo RT wo CAD. There are scattered fibroglandular densities. Previous mammotome biopsy in the right breast. No significant changes when compared with prior studies. ASSESSMENT: Benign, BI-RAD 2 RECOMMENDATION: Routine screening mammogram of both breasts in 1 year.
== END | disposition home or self-care (01) ==
LOC: RADMAMWWP 16:26
PROVIDERS: ATTEND Family Medicine
DX: Z12.31 Encounter for screening mammogram for malignant neoplasm of breast (principal)
CPT/HCPCS: 77063; 77067

== ENCOUNTER → 2019-06-03 | Outpatient (CLI) | payer MEDICAID ==
[2019-06-03 16:57] LABS: HGB 14.8 gm/dL (11.4-16.0); MCH 31.6 pg (25.0-35.0); MCHC 32.9 g/dL (31.0-37.0); MCV 95.8 fL (80.0-100.0); Mean Platelet Volume 7.6; Platelet Count 279 k/uL (150-450); RDW 12.9 % (11.5-15.5); WBC 7.6 k/uL (3.8-10.6)
[2019-06-04 04:14] LABS: African American GFR (CKD) 82.8 (60.0-200.0); Albumin 4.8 g/dL (3.80-4.90); Albumin/Globulin Ratio 2.29 (1.60-3.17); Anion Gap 16.4 mmol/L (4.00-12.00); BUN/Creat Ratio 18.89 Ratio (12.00-20.00); Calcium 10.1 mg/dL (8.7-10.3); Carbon Dioxide 20.6 mmol/L (21.6-31.8); Globulin 2.1 g/dL (1.6-3.3); Non-African American GFR(CKD) 71.5 (60.0-200.0); Potassium 4.4 mmol/L (3.5-5.5); Total Bilirubin 0.3 mg/dL (0.2-1.2); Total Protein 6.9 g/dL (6.2-8.2)
[2019-06-04 04:24] LABS: Estradiol 19.3 pg/mL; Follicle Stimulating Hormone 27.7 mIU/mL
[2019-06-04 05:06] LABS: Progesterone <0.2 ng/mL
== END | disposition home or self-care (01) ==
LOC: LABWHC1 15:53
PROVIDERS: ATTEND Obstetrics & Gynecology Obstetrics
DX: R14.0 Abdominal distension (gaseous) (principal); R41.3 Other amnesia; N95.1 Menopausal and female climacteric states; R45.4 Irritability and anger; R61 Generalized hyperhidrosis; G47.00 Insomnia, unspecified; N95.2 Postmenopausal atrophic vaginitis
CPT/HCPCS: 36415; 80053; 82306; 82607; 82670; 83001; 84144; 84403; 84436; 84443; 84481; 85027; 86376

== ENCOUNTER → 2019-07-03 | Outpatient (CLI) | payer MEDICAID ==
[2019-07-04 00:15] LABS: ALT 46 U/L (8-44); AST 45 U/L (13-35)
== END | disposition home or self-care (01) ==
LOC: LABWHC1 15:29
PROVIDERS: ATTEND Obstetrics & Gynecology Obstetrics
DX: R79.89 Other specified abnormal findings of blood chemistry (principal)
CPT/HCPCS: 36415; 84450; 84460

== ENCOUNTER → 2020-07-29 | Outpatient (CLI) | payer MEDICAID ==
[2020-07-29 11:06] LABS: Basophils # (A) 0.02 X 10*3/uL (0.00-0.10); Basophils % (A) 0.4 %; Eosinophils # (A) 0.35 X 10*3/uL (0.04-0.35); Eosinophils % (A) 7.4 %; HCT 43.7 % (37.2-46.3); HGB 14.3 g/dL (12.0-15.0); Lymphocytes # (A) 1.88 X 10*3/uL (0.90-5.00); Lymphocytes % (A) 39.8 %; MCH 31.6 pg (27.0-32.0); MCHC 32.7 g/dL (32.0-37.0); MCV 96.7 fL (80.0-97.0); Mean Platelet Volume 10.4 fL (9.5-12.2); Monocytes # (A) 0.52 X 10*3/uL (0.20-1.00); Neutrophils # (A) 1.94 X 10*3/uL (1.80-7.70); Neutrophils % (A) 41.2 %; Platelet Count 234 X 10*3/uL (140-440); RBC 4.52 X 10*6/uL (4.10-5.20); WBC 4.72 X 10*3/uL (4.50-10.00)
[2020-07-29 12:47] LABS: African American GFR (CKD) 94.2 (60.0-200.0); Albumin 4.7 g/dL (3.80-4.90); Albumin/Globulin Ratio 2.35 (1.60-3.17); Anion Gap 9.7 mmol/L (4.00-12.00); BUN/Creat Ratio 17.5 Ratio (12.00-20.00); Calcium 9.5 mg/dL (8.7-10.3); Carbon Dioxide 27.3 mmol/L (21.6-31.8); Chol/HDL Ratio 3.14; Non-African American GFR(CKD) 81.3 (60.0-200.0); Potassium 4.5 mmol/L (3.5-5.5); Total Bilirubin 0.7 mg/dL (0.2-1.2); Total Protein 6.7 g/dL (6.2-8.2)
== END | disposition home or self-care (01) ==
LOC: LABWHC1 07:39
PROVIDERS: ATTEND Internal Medicine
DX: I10 Essential (primary) hypertension (principal)
CPT/HCPCS: 36415; 80053; 80061; 85025

== ENCOUNTER → 2020-08-04 | Outpatient (CLI) | payer MEDICAID | END | disposition home or self-care (01) | LOC: CPPFTMAIN 07:26 | PROVIDERS: ATTEND Internal Medicine | DX: J44.9 Chronic obstructive pulmonary disease, unspecified (principal) | CPT/HCPCS: 94060; 94726; 94729 ==

== ENCOUNTER → 2020-10-08 | Outpatient (CLI) | payer MEDICAID ==
--- NOTE | 2020-10-09 11:44 | MM ---
Reason for exam: screening (asymptomatic). Last mammogram was performed 1 year and 5 months ago. History: Patient is postmenopausal and had first child at age 36. Benign US biopsy breast VAD RT of the right breast, March 16, 2017. Took hormonal contraceptives beginning at age 21. Took estrogen for 1 year 3 months beginning at age 59. Physical Findings: A clinical breast exam by your physician is recommended on an annual basis and results should be correlated with mammographic findings. MG 3D Screening Mammo W/Cad Bilateral CC and MLO view(s) were taken. Prior study comparison: May 22, 2019, bilateral MG 3d screening mammo w/cad. November 20, 2017, bilateral MG diagnostic mammo w CAD EDUARDO. There are scattered fibroglandular densities. Stable benign calcifications. There is no discrete abnormality. No significant changes when compared with prior studies. ASSESSMENT: Benign, BI-RAD 2 RECOMMENDATION: Routine screening mammogram of both breasts in 1 year.
== END | disposition home or self-care (01) ==
LOC: RADMAMWWP 07:29
PROVIDERS: ATTEND Internal Medicine
DX: Z12.31 Encounter for screening mammogram for malignant neoplasm of breast (principal); Z78.0 Asymptomatic menopausal state
CPT/HCPCS: 77063; 77067

== ENCOUNTER → 2020-12-03 | Outpatient (CLI) | payer MEDICAID ==
[2020-12-03 11:34] LABS: HCT 45.9 % (37.2-46.3); HGB 14.6 g/dL (12.0-15.0); MCH 31.5 pg (27.0-32.0); MCHC 31.8 g/dL (32.0-37.0); MCV 99.1 fL (80.0-97.0); Mean Platelet Volume 10.5 fL (9.5-12.2); Platelet Count 240 X 10*3/uL (140-440); RBC 4.63 X 10*6/uL (4.10-5.20); RDW 12.7 % (11.5-14.5)
[2020-12-03 14:26] LABS: African American GFR (CKD) 94.2 (60.0-200.0); Albumin 4.6 g/dL (3.80-4.90); Albumin/Globulin Ratio 1.77 (1.60-3.17); Anion Gap 10.7 mmol/L (4.00-12.00); BUN/Creat Ratio 17.5 Ratio (12.00-20.00); Calcium 9.8 mg/dL (8.7-10.3); Carbon Dioxide 26.3 mmol/L (21.6-31.8); Globulin 2.6 g/dL (1.6-3.3); Non-African American GFR(CKD) 81.3 (60.0-200.0); Potassium 4.7 mmol/L (3.5-5.5); Total Bilirubin 0.4 mg/dL (0.3-1.2); Total Protein 7.2 g/dL (6.2-8.2)
[2020-12-03 14:27] LABS: Chol/HDL Ratio 3.18
== END | disposition home or self-care (01) ==
LOC: LABWHC1 07:41
PROVIDERS: ATTEND Internal Medicine
DX: I10 Essential (primary) hypertension (principal); E78.5 Hyperlipidemia, unspecified
CPT/HCPCS: 36415; 80053; 80061; 85027

== ENCOUNTER → 2021-10-20 | Outpatient (CLI) | payer BC ==
--- NOTE | 2021-10-22 10:33 | MM ---
Reason for exam: screening (asymptomatic). Last mammogram was performed 1 year ago. History: Patient is postmenopausal and had first child at age 36. Benign US biopsy breast VAD RT of the right breast, March 16, 2017. Took hormonal contraceptives beginning at age 21. Took estrogen for 1 year 3 months beginning at age 59. Physical Findings: A clinical breast exam by your physician is recommended on an annual basis and results should be correlated with mammographic findings. MG 3D Screening Mammo W/Cad Bilateral CC and MLO view(s) were taken. XCCL view(s) were taken of the left breast. Prior study comparison: October 08, 2020, bilateral MG 3d screening mammo w/cad. May 22, 2019, bilateral MG 3d screening mammo w/cad. The breast tissue is heterogeneously dense. This may lower the sensitivity of mammography. Stable benign calcifications. There is no discrete abnormality. No significant changes when compared with prior studies. ASSESSMENT: Benign, BI-RAD 2 RECOMMENDATION: Routine screening mammogram of both breasts in 1 year.
== END | disposition home or self-care (01) ==
LOC: RADMAMWWP 07:40
PROVIDERS: ATTEND Family Medicine
DX: Z12.31 Encounter for screening mammogram for malignant neoplasm of breast (principal); Z78.0 Asymptomatic menopausal state
CPT/HCPCS: 77063; 77067

== ENCOUNTER 2022-04-29 08:47 | Day surgery (SDC) | payer BC ==
[2022-04-26 16:34] VITALS: BMI 36.8
[2022-04-29 09:12] VITALS: TEMP 97.2
[2022-04-29] MEDS: LACTATED RINGERS 1,000 ML IV SCH ×2 (09:22→10:15)
[2022-04-29] MEDS ORDERED: PROPOFOL 10 MG/ML 20 ML VIAL IV ONE (10:22)
--- NOTE | 2022-04-29 10:33 | P.PCN ---
Date of Procedure: 04/29/22 Procedure(s) Performed: BRIEF HISTORY: Patient is a 61-year-old pleasant female scheduled for an elective colonoscopy as a part of screening for colon cancer and family history of colon cancer.. Her mother was diagnosed with colon cancer and so was her maternal grandmother. PROCEDURE PERFORMED: Colonoscopy. PREOPERATIVE DIAGNOSIS: Screening for colon cancer and family history of colon. IV sedation per Anesthesia. PROCEDURE: After informed consent was obtained, the patient, was brought into the endoscopy unit. IV sedation was administered by Anesthesia under continuous monitoring. Digital rectal examination was normal. Initially the Olympus CF-160 flexible video colonoscope was then inserted in the rectum, gradually advanced into the cecum without any difficulty. Careful examination was performed as the scope was gradually being withdrawn. Ileocecal valve and the appendiceal orifice were visualized and appeared normal. Prep was excellent. Mucosa of the cecum, ascending colon, transverse colon, descending colon, sigmoid colon, and rectum appeared normal. Scattered sigmoid diverticulosis Retroflexion was performed in the rectum and no lesions were seen. The patient tolerated the procedure well. IMPRESSION: Normal-appearing colon from rectum to cecum with no evidence of colorectal neoplasia . Scattered sigmoid diverticulosis RECOMMENDATIONS: Findings of this examination were discussed with the patient as well as her family. She was advised to have a repeat screening colonoscopy in 5 years because of the family history of colon cancer.
[2022-04-29] MEDS ORDERED: IV FLUID CONTINUATION 1,000 ML IV ONE (10:37)
[2022-04-29 10:44] VITALS: RESP 16
[2022-04-29 11:04] VITALS: BP 140/70; PULSE 56
== END 2022-04-29 11:08 | disposition home or self-care (01) ==
LOC: ORWHC2ENDO 08:47
PROVIDERS: ATTEND Internal Medicine Gastroenterology
DX: Z12.11 Encounter for screening for malignant neoplasm of colon (principal); K57.30 Diverticulosis of large intestine without perforation or abscess without bleeding; G43.909 Migraine, unspecified, not intractable, without status migrainosus; I10 Essential (primary) hypertension; Z79.899 Other long term (current) drug therapy; Z80.0 Family history of malignant neoplasm of digestive organs; Z88.0 Allergy status to penicillin
CPT/HCPCS: 45378; J2704

== ENCOUNTER → 2022-09-29 | Outpatient (CLI) | payer BC ==
--- NOTE | 2022-09-29 15:28 | CT ---
EXAMINATION TYPE: CT soft tissue neck wo con DATE OF EXAM: 09/29/2022 COMPARISON: None HISTORY: Lump/swelling to anterior left ear down through jaw. CT DLP: [address] of the neck was performed from the skull base through the lung apices. Active contrast limits evaluation. AIRWAY: The supraglottic, glottic, and subglottic portions of the airway appear patent and free of mass. SALIVARY GLANDS: The submandibular and parotid glands are free of mass or inflammatory process. THYROID GLAND: No nodules or masses seen. LYMPH NODES: No adenopathy seen greater than 1cm. LUNG APICES: No nodule or mass is seen. OTHER: Vascular structures are patent. No significant degenerative change of the cervical spine. N o abscess seen. IMPRESSION: No discrete abnormality appreciated at this time. If symptoms persist consider contrast enhanced eval uation.
== END | disposition home or self-care (01) ==
LOC: RADCTMAIN 14:20
PROVIDERS: ATTEND Family Medicine
DX: R22.1 Localized swelling, mass and lump, neck (principal)
CPT/HCPCS: 70490

== ENCOUNTER → 2022-11-08 | Outpatient (CLI) | payer BC ==
--- NOTE | 2022-11-08 17:54 | BD ---
EXAMINATION TYPE: Axial Bone Density DATE OF EXAM: 11/08/2022 CLINICAL HISTORY: 62 years old Female. ICD-10 CODE: [id number] ENCOUNTER FOR SCREEING OSTEOPOROSIS Height: 67 Weight: 237.4 FRAX RISK QUESTIONS: Alcohol (3 or more units per day): no Family History (Parent hip fracture): no Glucocorticoids (More than 3mos): Inhaler History of Fracture in Adulthood: no Secondary Osteoporosis: 1. Type 1 Diabetes: no 2. Hyperthyroidism: no 3. Menopause before 45: no 4. Malnutrition: no 5. Chronic liver disease: no Rheumatoid Arthritis: no Current Tobacco Use: no RISK FACTORS HISTORY OF: Hip Fracture (Right/Left): no Spine Fracture: no History of Wrist Fracture: no Surgery to Spine/Hip(right/left)/Wrist (right/left): no Family History of Osteoporosis: no Active: somewhat Diet low in dairy products/other sources of calcium: no Postmenopausal woman: yes Take estrogen and/or progesterone medications: no Lost more than 2 inches in height since high school: no Frequent falls: no Poor Health: no Hyperparathyroidism: no Adrenal Insufficiency: no MEDICATIONS: Prednisone or other steroids: Inhaler daily How Long: Past 30 years Thyroid Medications: no Osteoporosis Medications: no Additional Medications: BP Med, Zoloft, Vit d, Additional History: EXAM MEASUREMENTS: Bone mineral densitometry was performed using the trippiece System. Bone mineral density as measured about the Lumbar spine is: ----- L1-L4(G/cm2): 1.342 T Score Values are as follows: ----- L1: -0.4 ----- L2: 1.0 ----- L3: 2.1 ----- L4: 1.9 ----- L1-L4: 1.3 Z Score Values are as follows: ----- L1: -0.3 ----- L2: 1.1 ----- L3: 2.2 ----- L4: 2.0 ----- L1-L4: 1.4 Baseline Study Bone mineral density about the R hip (g/cm2): 1.049 Bone mineral density about the L hip (g/cm2): 1.037 T Score values are as follows: -----R Neck: -1.0 -----L Neck: -0.7 -----R Total: 0.3 -----L Total: 0.3 Z Score values are as follows: -----R Neck: -0.5 -----L Neck: -0.2 -----R Total: 0.4 -----L Total: 0.3 Baseline Study FRAX%s: The graph provided illustrates a 10.4% chance for a major osteoporotic fx and a 0.6% chance f or the hips probability for fx in 10 years time. IMPRESSION: Normal (Values between +1 and -1 indicate normal bone mass). Note that measurements are bordering on osteopenia at the right hip. Consider repeating this study in 5 years or sooner if there is some new clinical indication. NOTE: T-SCORE=SD OF THE YOUNG ADULT MEAN.
--- NOTE | 2022-11-09 08:32 | MM ---
Reason for Exam: Screening (asymptomatic). Last screening mammogram was performed 12 month(s) ago. Patient History: Menarche at age 16. First Full-Term at age 36. Late child-bearing (after 30). Left ovary removed at age 58. Right ovary removed at age 58. Hysterectomy at age 58. Postmenopausal. Patient has history of breast feeding. Estrogen for 1 year, 3 months, from age 59 until age 60. Hormonal Contraceptives, from age 21 until age 40. 03/16/2017, Benign Core Biopsy on the right side. Risk Values: Miranda 5 year model risk: 2.1%. NCI Lifetime model risk: 10.7%. Prior Study Comparison: 05/22/2019 Bilateral Screening Mammogram, [facility]. 10/08/2020 Bilateral Screening Mammogram, [facility]. 10/20/2021 Bilateral Screening Mammogram, [facility]. Tissue Density: There are scattered fibroglandular densities. Findings: Analyzed By CAD. Right breast biopsy clip. There is no suspicious group of microcalcifications or new suspicious mass in either breast. Overall Assessment: Benign, BI-RAD 2 Management: Screening Mammogram of both breasts in [address] [facility] will attempt to contact patient to return for supplemental views and ultrasound if indicated. Patient should continue monthly self-breast exams. A clinical breast exam by your physician is recommended on an annual basis. This exam should not preclude additional follow-up of suspicious palpable abnormalities. Note on Miranda scores and lifetime risk: 1. A Miranda score greater than 3% is considered moderate risk. If this is the case, consider specialist referral to assess eligibility for a risk reducing agent. 2. If overall lifetime risk for the development of breast cancer is 20% or higher, the patient may qualify for future screening with alternating mammogram and breast MRI. Electronically signed and approved by: Eusebio Min DO
== END | disposition home or self-care (01) ==
LOC: RADMAMWWP 07:01
PROVIDERS: ATTEND Family Medicine
DX: Z12.31 Encounter for screening mammogram for malignant neoplasm of breast (principal); Z13.820 Encounter for screening for osteoporosis
CPT/HCPCS: 77063; 77067; 77080

== ENCOUNTER → 2023-12-08 | Outpatient (CLI) | payer BC ==
--- NOTE | 2023-12-11 13:49 | MM ---
Reason for Exam: Screening (asymptomatic). Last mammogram was performed 1 year(s) and 1 month(s) ago. Patient History: Menarche at age 16. First Full-Term at age 36. Late child-bearing (after 30). Left ovary removed at age 58. Right ovary removed at age 58. Hysterectomy at age 58. Postmenopausal. Patient has history of breast feeding. Estrogen for 1 year, 3 months, from age 59 until age 60. Hormonal Contraceptives, from age 21 until age 40. 03/16/2017, Benign Core Biopsy on the right side. Risk Values: Miranda 5 year model risk: 2.2%. NCI Lifetime model risk: 10.4%. Prior Study Comparison: 10/08/2020 Bilateral Screening Mammogram, [facility]. 10/20/2021 Bilateral Screening Mammogram, [facility]. 11/08/2022 Bilateral MG 3D screening mammo w/cad, [facility]. Tissue Density: The breasts are almost entirely fatty. Findings: Analyzed By CAD. Right breast biopsy clip. Right breast: There is no suspicious group of microcalcifications or new suspicious mass. Benign-appearing calcifications left breast. Left breast: There is no suspicious group of microcalcifications or new suspicious mass. Benign-appearing calcifications left breast. Overall Assessment: Negative, BI-RAD 1 Management: Screening Mammogram of both breasts in [address] [facility] will attempt to contact patient to return for supplemental views and ultrasound if indicated. Patient should continue monthly self-breast exams. A clinical breast exam by your physician is recommended on an annual basis. This exam should not preclude additional follow-up of suspicious palpable abnormalities. Note on Miranda scores and lifetime risk: 1. A Miranda score greater than 3% is considered moderate risk. If this is the case, consider specialist referral to assess eligibility for a risk reducing agent. 2. If overall lifetime risk for the development of breast cancer is 20% or higher, the patient may qualify for future screening with alternating mammogram and breast MRI. Electronically signed and approved by: Eusebio Min DO
== END | disposition home or self-care (01) ==
LOC: RADMAMWWP 07:02
PROVIDERS: ATTEND Family Medicine
DX: Z12.31 Encounter for screening mammogram for malignant neoplasm of breast (principal); Z78.0 Asymptomatic menopausal state
CPT/HCPCS: 77063; 77067

== ENCOUNTER → 2024-03-18 | Outpatient (CLI) | payer BC ==
--- NOTE | 2024-03-18 20:56 | MR ---
EXAMINATION TYPE: MR brain and iac wo/w con DATE OF EXAM: 03/18/2024 7:04 PM CLINICAL INDICATION: Female, 63 years old with history of H90.A21 SNSRNRL HEAR LOSS; PHH, Dizziness, right sided hearing loss, restricted hearing on left. tinnitus COMPARISON: None TECHNIQUE: Multi planar, multi sequence imaging was performed through the brain. Specialized thin s equences were obtained through the internal auditory canals. Pre-and post gadolinium sequences were obtained. MR contrast: IV Contrast: 10 cc Gadavist FINDINGS: The erazo-white junctions, ventricular system, and cisterns appear unremarkable. Scattered foci of h igh T2 signal intensity are seen within the periventricular white matter. Midline structures show no abnormality. Diffusion-weighted imaging shows no evidence of restricted diffusion. The susceptibility weighted images do not reveal any evidence for micro-hemorrhage. The bone marrow signal is within normal limits. Paranasal sinuses and mastoid air cells: Mild scattered paranasal sinus disease. Visualized orbits: Orbital contents are intact. After administration of gadolinium, no abnormal enhancement is seen. The internal auditory canal sequences demonstrate no significant irregularity. The 7th cranial nerve s, 8 cranial nerves, and cerebellar pontine angles appear unremarkable. After the administration demetria olinium, no abnormal enhancement is seen within the internal auditory canals. Vascular loop: None. IMPRESSION: 1. No evidence of intracranial mass nor acute/subacute CVA. 2. No evidence of internal auditory canal abnormality. 3. Nonspecific white matter changes, likely secondary to small vessel ischemic disease. [facility], , 03/18/2024 8:53 PM
== END | disposition home or self-care (01) ==
LOC: RADMRIMAIN 18:05
PROVIDERS: ATTEND Otolaryngology
DX: H90.A21 Sensorineural hearing loss, unilateral, right ear, with restricted hearing on the contralateral side
CPT/HCPCS: 70553